=== PATIENT | male | born 1975 | race Caucasian/White ===

== ENCOUNTER 2020-03-27 10:44 | Emergency (ER) | payer OTHER, SELFPAY ==
--- NOTE | ~2020-03-27 | US_ITS ---
US scrotum doppler DATE: 03/27/2020 11:52 INDICATION: Scrotal swelling following mastectomy TECHNIQUE: Real-time and Color flow imaging and Doppler analysis of the scrotal contents COMPARISON: None FINDINGS: Right testicle measures 4.1 x 1.9 x 3.4 cm. Left testicle measures 5.3 x 2.2 x 3.4 cm. No testicular mass lesion or torsion is evident. There is homogeneous symmetric echotexture of the te sticles. There is a large smoothly marginated cyst in the right epididymal area measuring 4 x 2.4 x 1.8 cm dim ension. No evidence of varicoceles. IMPRESSION: 4 x 2.4 x 1.8 cm cyst in the right epididymal area No testicular mass lesion or torsion Reviewed, dictated and finalized at [facility] Reviewed, dictated and finalized at [facility]. [employer]
[2020-03-27 10:55] VITALS: BP 128/80; PULSE 101; RESP 20; TEMP 36.6; O2SAT 98
--- NOTE | 2020-03-27 11:30 | PC.NURSE ---
Lab orders placed by provider while patient in waiting room, patient was taken to ultrasound before this nurse could obtain labs or place IV.
--- NOTE | 2020-03-27 12:13 | PC.NURSE ---
Patient refused IV at this time
[2020-03-27 12:27] LABS: Basophils Percent Auto 0.4 % (0.2-1.2); Eosinophils Absolute Auto 0.1 K/mm3 (0-0.3); Eosinophils Percent Auto 1.7 % (0-4.4); Hematocrit 46.3 % (42.0-52.0); Hemoglobin 15.6 g/dL (14.0-18.0); Immature Granulocyte Absolute 0.04 K/mm3 (0.00-0.031); Immature Granulocyte Percent A 0.5 % (0-0.5); Lymphocytes Absolute Auto 1.92 K/mm3 (0.9-3.2); Lymphocytes Percent Auto 24.6 % (18.3-44.2); Mean Corpuscular HGB Conc 33.7 g/dl (32-36); Mean Corpuscular Hemoglobin 30.6 pg (26-34); Monocytes Percent Auto 12.7 % (2.6-8.5); Neutrophils Absolute Auto 4.7 K/mm3 (1.3-6.7); Neutrophils Percent Auto 60.1 % (45.5-73.1); Platelet Count Result 247 k/mm3 (150-375); Red Blood Count 5.09 M/mm3 (4.6-6.20); Red Cell Distribution Width 11.9 % (11.5-14.5); White Blood Count 7.8 K/mm3 (4.5-10.0)
[2020-03-27 12:34] LABS: Add Urine Microscopic? YES; Appearance Urine Clear (Clear); Bilirubin Urine Negative (Negative); Blood Urine Negative (Negative); Color Urine Yellow (Yellow); Glucose Urine UA Negative (Negative); Ketones Urine Negative (Negative); Leukocyte Esterase Ur Negative LEU/UL (Negative); Mucus Urine Rare /lpf; Nitrate Urine Negative (Negative); Protein Urine 1+ mg/dL (Negative); Urobilinogen Urine Negative mg/dL (<2.0); WBC Urine 0-3 /hpf
[2020-03-27 12:38] LABS: Potassium 4.4 mmol/L (3.4-5.0)
[2020-03-27 12:39] LABS: Lactic Acid Reflex 0.9 mmol/L (0.7-2.1)
[2020-03-27 12:40] LABS: Specific Grav Ur 1.033 (1.001-1.035)
[2020-03-27 12:42] LABS: Anion Gap 7 mmol/L (8-16); Blood Urea Nitrogen 21 mg/dL (9-20); Calcium 9.8 mg/dL (8.4-10.2); Carbon Dioxide 26 mmol/L (22-30); Chloride 105 mmol/L (98-107); Estimated CRCL calculation 105 ml/min; Estimated Glomerular Filt Rate > 60; Glucose 80 mg/dL (75-110); Sodium 138 mmol/L (137-145)
[2020-03-27] MEDS: SODIUM CHLORIDE 0.9% IV 1,000 ML 999 ML IV CONT (12:48)
--- NOTE | 2020-03-27 13:11 | ED.GENADULT ---
HPI - General Adult General Chief complaint: Urogenital-Male <Marcio Browne PA-C - Last Filed: 03/27/20 13:16> Stated complaint: testicular pain <Marcio Browne PA-C - Last Filed: 03/27/20 13:16> Time Seen by Provider: 03/27/20 10:57 <Marcio Browne PA-C - Last Filed: 03/27/20 13:16> Source: patient, family and old records reviewed <Marcio Browne PA-C - Last Filed: 03/27/20 13:16> Mode of arrival: ambulatory <Marcio Browne PA-C - Last Filed: 03/27/20 13:16> Limitations: no limitations <Marcio Browne PA-C - Last Filed: 03/27/20 13:16> History of Present Illness HPI narrative: Patient is a 44-year-old male who presents with scrotal swelling and pain patient had a vasectomy [address] Aguila was evaluated on Saturday in the urology office secondary to pain and swelling was placed on antibiotic and then again was evaluated on Saturday by Dr. Aguila placed on ciprofloxacin and then returns to emergency department today for evaluation for concern of discomfort and swelling but noting that the last 2 days have been his best days since the surgery patient denies vomiting diarrhea dysuria hematuria patient presents in no distress patient has been taking ibuprofen with relief <Marcio Browne PA-C - Last Filed: 03/27/20 13:16> Related Data Home medications: Home Medications Medication Instructions Recorded Confirmed ciprofloxacin HCl 500 mg PO BID 03/27/20 03/27/20 <Marcio Browne PA-C - Last Filed: 03/27/20 13:16> Allergies/adverse reactions: Allergies Allergy/AdvReac Type Severity Reaction Status Date / Time No Known Allergies Allergy Verified 03/27/20 10:59 <Marcio Browne PA-C - Last Filed: 03/27/20 13:16> Review of Systems Review of Systems: All systems reviewed & are unremarkable except as noted in HPI and below <Marcio Browne PA-C - Last Filed: 03/27/20 13:16> [facility] Surgical History Surgical History: Surgical History (Updated 03/27/20 @ 13:12 by Marcio Browne PA-C) H/O vasectomy <Marcio Browne PA-C - Last Filed: 03/27/20 13:16> Social History Social History: Social History (Updated 03/27/20 @ 13:12 by Marcio Browne PA-C) Smoking status: Never smoker Gender identity (if verbalized by the patient): Male <Marcio Browne PA-C - Last Filed: 03/27/20 13:16> Exam Narrative: Exam Narrative: GENERAL: Well-appearing, well-nourished, and in no acute distress. HEAD: Normocephalic, atraumatic. EYES: PERRLA and EOMI. ENT: Nares clear, no rhinorrhea or epistaxis. Mucous membranes moist. CHEST: Clear to auscultation. No respiratory distress. No wheezes rales or rhonchi HEART: Regular rate and rhythm. No murmur heard. Normal peripheral pulses. ABDOMEN: Soft, nontender, nondistended MALE GENITOURINARY: Patient with swollen scrotum bilaterally with majority of tenderness on the left side where the majority of the swelling is located there is bruising of the scrotum no erythema cellulitic changes or drainage remainder of genitalia unremarkable SKIN: Warm, dry, no rash. NEURO: No focal deficits. Alert and oriented x3. PSYCH: Normal mood and affect. <Marcio Browne PA-C - Last Filed: 03/27/20 13:16> Course Course Emergency Course: Patient evaluated in the emergency department will be discharged home patient was seen by urology plan is to continue at home given that he has had improvement over the last 2 days patient is afebrile nontoxic-appearing no distress. <Marcio Browne PA-C - Last Filed: 03/27/20 13:16> Consultations Consultation #1: natalie waller or neurology in the emergency department discussed case with him and will evaluate patient <Marcio Browne PA-C - Last Filed: 03/27/20 13:16> Date: 03/27/20 <Marcio Browne PA-C - Last Filed: 03/27/20 13:16> Time: 13:13 <Marcio Browne PA-C - Last Filed: 03/27/20 13:16> Vital Signs Vital signs:
[2020-03-27 13:23] VITALS: BP 127/62; PULSE 82; RESP 17; TEMP 36.9; O2SAT 97
--- NOTE | 2020-03-27 13:32 | WPDURCON ---
Assessment and Plan Assessment and plan (1) Postoperative hematoma involving genitourinary system following genitourinary procedure: Code(s): N99.840 - Postprocedural hematoma of a genitourinary system organ or structure following a genitourinary system procedure Status: Acute Assessment and Plan: Discussed options including scrotal washout or observation with supportive underwear. He's feeling better today actually. He'd like to avoid surgery. His testes appear normal via US. He may discharge with follow up this week in office to further evaluate. Urology Consult Note HPI Date Seen: 03/27/20 Primary Care Provider: Ga Shore, MD Consult Narrative Narrative: Randal Norris is a 44 year old male about one week out from a vasectomy. He was seen multiple times in the office this past week with concerns regarding swelling. The swelling increased significantly today and he came to the ED. His pain actually is the lowest level it's been since procedure. He was started on cipro by Dr Aguila this past Saturday. Scrotal US shows normal testicles and what is reported as a 4 cm epididymal cyst but is presumably either a hematoma or reactive hydrocele. No fevers, WBC normal. Review of Systems Review of Systems: All systems reviewed & are unremarkable except as noted in HPI and below PMFSH Surgical History Surgical History (Updated 03/27/20 @ 13:12 by Marcio Browne PA-C) H/O vasectomy Social History Social History (Updated 03/27/20 @ 13:12 by Marcio Browne PA-C) Smoking status: Never smoker Gender identity (if verbalized by the patient): Male Meds Home Medications and Allergies Home Medications Medication Instructions Recorded Confirmed Type ciprofloxacin HCl 500 mg PO BID 03/27/20 03/27/20 History Allergies Allergy/AdvReac Type Severity Reaction Status Date / Time No Known Allergies Allergy Verified 03/27/20 10:59 Vital Signs Vital Signs - 24 hr 03/27/20 10:55 03/27/20 13:23 Temperature 36.6 C 36.9 C Pulse Rate 101 H 82 Respiratory Rate 20 17 Blood Pressure 128/80 127/62 Pulse Oximetry 98 97 Exam Const: General: cooperative, healthy appearing and no acute distress HENMT: Head: normal to inspection and atraumatic Eyes: General: appearance normal, both eyes and all related structures Conjunctivae: conjunctivae normal Resp: Effort & Inspection: normal respiratory effort and no cough : Other: right testicle normal to palpation; left hemiscrotum about softball sized, some skin bruising, not overly tender, no signs of infection Results Labs CBC & Chem 7: 03/27/20 12:16 03/27/20 12:16 Labs: Short CBC 03/27/20 Range/Units 12:16 WBC 7.8 (4.5-10.0) K/mm3 Hgb 15.6 (14.0-18.0) g/dL Hct 46.3 (42.0-52.0) % Plt Count 247 (150-375) k/mm3 BMP 03/27/20 12:16 Sodium 138 Potassium 4.4 Chloride 105 Carbon Dioxide 26 BUN 21 H Creatinine 1.00 Glucose 80 Calcium 9.8 Urine 03/27/20 Range/Units 12:16 Urine Color Yellow (Yellow) Urine Appearance Clear (Clear) Urine pH 5.0 (5.0-9.0) Ur Specific [place] 1.033 (1.001-1.035) Urine Protein 1+ H (Negative) mg/dL Urine Glucose (UA) Negative (Negative) mg/dL
== END 2020-03-27 13:29 | disposition home or self-care (01) ==
PROVIDERS: Emergency Medicine Emergency Medical Services; Emergency Provider General Practice; PCP Family Medicine
DX: N99.840 Postprocedural hematoma of a genitourinary system organ or structure following a genitourinary system procedure (principal); Z98.52 Vasectomy status
CPT/HCPCS: 36415; 76870; 80048; 81001; 83605; 85025; 93976; 96365; 99284; J0131; J7030

== ENCOUNTER 2020-05-26 09:00 | Outpatient (CLI) | payer OTHER, SELFPAY | END 2020-05-26 09:01 | disposition home or self-care (01) | LOC: ANHCOVIDVC 09:00 | PROVIDERS: PCP Family Medicine | DX: Z23 Encounter for immunization (principal) | CPT/HCPCS: 0001A; 91300 ==

== ENCOUNTER 2020-06-16 09:03 | Outpatient (CLI) | payer OTHER, SELFPAY | END 2020-06-16 09:04 | disposition home or self-care (01) | LOC: ANHCOVIDVC 09:04 | PROVIDERS: PCP Family Medicine | DX: Z23 Encounter for immunization (principal) | CPT/HCPCS: 0002A; 91300 ==

== ENCOUNTER 2022-07-26 08:10 | Emergency (ER) | payer OTHER, SELFPAY ==
[2022-07-26 08:36] VITALS: BP 148/89; PULSE 79; RESP 18; TEMP 36.4; O2SAT 99
--- NOTE | 2022-07-26 08:51 | ED.EYEPROB ---
HPI - Eye Problem General Chief complaint: Eye Problems Stated complaint: rt eye irritation Source: patient and RN notes reviewed History of Present Illness HPI Narrative: 46-year-old male presents to urgent care with complaints of right eye irritation. Patient states he was mowing grass yesterday he something fly underneath his glasses and his right eye. Patient attempted to irrigate his right eye with water with no relief. Patient states he has been scratching his right all night and continues to feel a foreign body sensation. Denies any photosensitivity or visual disturbance. patient does not wear contacts. Some parts of this dictation were generated by voice recognition software and may contain typographical and/or grammatical inaccuracies. Related Data Allergies Allergy/AdvReac Type Severity Reaction Status Date / Time No Known Allergies Allergy Verified 07/26/22 08:58 Review of Systems Review of Systems: CONSTITUTIONAL: Denies fever, chills, or sweats. EYES: right eye irritation. Patient reports foreign body sensation. ENT: Denies otalgia and sore throat CARDIOVASCULAR: Denies chest pain, palpitations, or edema. RESPIRATORY: Denies cough or dyspnea. GASTROINTESTINAL: Denies abdominal pain, nausea, vomiting, or diarrhea. GENITOURINARY: Denies dysuria or hematuria. SKIN: Denies rash or itching. MUSCULOSKELETAL: Denies back pain, joint pain, or myalgia. NEUROLOGIC: Denies headache, numbness, or weakness. Pertinent positives per HPI. [facility] Surgical History Surgical History (Updated 03/27/20 @ 13:12 by Marcio Browne, GISEL) H/O vasectomy Social History Social History (Updated 03/27/20 @ 13:12 by Marcio Browne, GISEL) Smoking status: Never smoker Gender identity (if verbalized by the patient): Male Comments At the time of my signature, I reviewed and agree with the nursing past medical, surgical, social, and family history. There is no relevant family history pertinent to the patient complaint. Exam Narrative: GENERAL: This is a well-nourished, well-developed patient, in no apparent distress. HEAD: normocephalic, atraumatic. EYES: Sclera clear/white. Vision is grossly intact. Nguyen lamp exam was performed with no significant abrasion noted. 1 black speck FB was removed from under the right upper lid with a q-tip. EARS: External ears normal, auditory canals clear and without drainage. Hearing grossly intact. NOSE: External nose normal with no obvious nasal discharge, nares without redness, no rhinorrhea. THROAT: Mucous membranes moist, posterior pharynx clear. NECK: Neck supple, non-tender without lymphadenopathy, masses or thyromegaly. CARDIOVASCULAR: Regular rate RESPIRATORY: no respiratory distress SKIN: warm, intact with no suspicious lesions or rash, good texture and turgor. NEURO: awake, alert, and oriented to person, place and time. There were no obvious focal neurologic abnormalities. Course Course Level of Care: Express Care Visit Vital Signs Vital signs: Vital Signs Temperature 97.6 F 07/26/22 08:36 Pulse Rate 79 07/26/22 08:36 Respiratory Rate 18 07/26/22 08:36 Blood Pressure 148/89 H 07/26/22 08:36 Pulse Oximetry 99 07/26/22 08:36 Oxygen Delivery Room Air 07/26/22 08:36 Temperature 97.6 F 07/26/22 08:36 Pulse Rate 79 07/26/22 08:36 Respiratory Rate 18 07/26/22 08:36 Blood Pressure 148/89 H 07/26/22 08:36 Pulse Oximetry 99 07/26/22 08:36 Oxygen Delivery Room Air 07/26/22 08:36 Reviewed MDM - Eye Problem MDM Narrative Medical decision making narrative: May use the eyedrops if you begin to have eye pain again. Follow up with ophthalmology if you begin to have symptoms again. Differential Diagnosis Differential diagnosis: Likely corneal abrasion, corneal ulcer and other (eye fb) Critical Care Time Critical Care Time Critical Care Time: No Discharge Plan Discharge Clinical Impression: Eye forei
== END 2022-07-26 09:21 | disposition home or self-care (01) ==
PROVIDERS: Emergency Provider Nurse Practitioner Family; PCP Family Medicine
DX: T15.11XA Foreign body in conjunctival sac, right eye, initial encounter (principal); X58.XXXA Exposure to other specified factors, initial encounter; Z98.52 Vasectomy status
CPT/HCPCS: 65205; 99213; A9270; G0463

== ENCOUNTER 2024-07-29 08:12 | Emergency (ER) | payer OTHER, SELFPAY ==
--- NOTE | 2024-07-29 08:15 | ED.SKABFB ---
HPI - Skin/Abscess/Foreign Bdy General Chief complaint: Skin/Abscess/Foreign Body Stated complaint: Skin/Abscess/Foreign Body Time Seen by Provider: 07/29/24 08:15 Source: patient Mode of arrival: ambulatory Limitations: no limitations History of Present Illness HPI narrative: Randal is a 48-year-old male patient presenting to the clinic today with complaints of a red, mildly tender, mildly erythemic rash to the right chest wall. He reports symptoms started yesterday. Just got over hot tub folliculitis and was doing a topical clindamycin cream for that. His states the symptoms have resolved however yesterday he developed a mildly painful erythemic rash to the right breast. No drainage from his nipple. Denies any fevers, chills, body aches. Related Data Home Medications ?Medication ?Instructions ?Recorded ?Confirmed ?Last Taken ?Type azithromycin 250 mg tablet mg 07/29/24 Unknown History clindamycin phosphate 1 % topical topical 07/29/24 Unknown History gel Allergies Allergy/AdvReac Type Severity Reaction Status Date / Time No Known Allergies Allergy Verified 07/29/24 08:14 Review of Systems Review of Systems: Pertinent positives per HPI. Patient denies any fever, chills, headache, visual changes, dizziness, cough, runny nose, sore throat, shortness of breath, chest pain, palpitations, nausea, vomiting, diarrhea, constipation, abdominal pain, or any urinary issues. PMFSH Surgical History Surgical History H/O vasectomy Social History Social History Smoking status: Never smoker Gender identity (if verbalized by the patient): Male Comments At the time of my signature, I reviewed and agree with the nursing past medical, surgical, social, and family history. There is no relevant family history pertinent to the patient complaint. Exam Narrative: General: Well-developed, well nourished, in no apparent distress Head: Normocephalic, atraumatic. Cardio: Regular rate and rhythm, s1 and s2 normal, no murmur appreciated. Resp: Clear to auscultation bilaterally, no rhonchi, rales, wheezing or rubs. Integumentary: [place], warm, and dry, red, mildly tender to palpation, mildly erythemic, non fluctuant, non indurated, blanchable, rash just below the right nipple, no drainage from the nipple. Course Course Emergency Course: Portions of this record may have been created with voice recognition software. Level of Care: Express Care Visit Vital Signs Vital signs: Vital Signs Temperature 36.6 C 07/29/24 08:21 Pulse Rate 65 07/29/24 08:21 Respiratory Rate 14 07/29/24 08:21 Blood Pressure 150/82 H 07/29/24 08:21 Pulse Oximetry 100 07/29/24 08:21 Oxygen Delivery Room Air 07/29/24 08:21 Temperature 36.6 C 07/29/24 08:21 Pulse Rate 65 07/29/24 08:21 Respiratory Rate 14 07/29/24 08:21 Blood Pressure 150/82 H 07/29/24 08:21 Pulse Oximetry 100 07/29/24 08:21 Oxygen Delivery Room Air 07/29/24 08:21 Vital signs reviewed MDM - Skin/Abscess/Foreign Bdy MDM Narrative Medical decision making narrative: At the time of visit patient is resting comfortably on the exam table. Patient appears to be nontoxic. Plan: I suspect patient has a nonspecific rash. Rash is painful with palpation however is not painful when not being touch. Just recently got over folliculitis. Patient is concerned that there may be an internal skin infection that he may need oral antibiotics. He is leaving tomorrow to stay and [place] for 3 months. Area is tender to palpation and mild erythemic. Will cover with a 7 day course of clindamycin as well as a 7 day course of acyclovir. Will have him start the clindamycin and if symptoms are improving in the next few day/worsening or few developed blisters recommend starting the acyclovir as this may be the start of a shingles eruption. Supportive measures were discussed with the patient and they voiced understanding discharge instructions and agrees to treatment plan. Return precautions reviewed Differential Diagnosis Differential diagnosis: Likely abscess of skin or subcutaneous tissue, viral exanthem, dermatophytosis, urticaria, herpes zoster, allergic reaction to drug, cellulitis, insect bites, impetigo and contact dermatitis Discharge Plan Discharge Clinical Impression: Rash and nonspecific skin eruption Patient Disposition: Home Condition: Stable Instructions: Antibiotic Form, Shingles (ED), Cellulitis (ED) Additional Instructions: Keep area covered if develops blisters/draining Keep area clean and dry Start clindamycin as prescribed Take daily probiotic-may take this 2 hours before or 2 hours after taking 1 of the antibiotic doses May take Tylenol/Motrin as needed for pain May apply a lidocaine patch over the area to help alleviate pain If area develops blistering and antibiotics are not improving symptoms may start taking acyclovir as this may be the start of shingles. Follow-up with your primary care doctor or go to a local urgent care if symptoms persist in 3-5 days or sooner if symptoms worsen. Patient Language: Setswana Prescriptions: New clindamycin HCl [Cleocin HCl] 300 mg capsule 300 mg PO TID 7 Days Qty: 21 0RF acyclovir 800 mg tablet 800 mg PO Q4H 7 Days Qty: 42 0RF Rx Instructions: while awake; give 5 doses in 24 hours No Action azithromycin 250 mg tablet clindamycin phosphate 1 % gel TOPICAL Follow-up/Referrals: UNKNOWN,DOCTOR [Non-Staff] - Time of Disposition: 08:31 Quality NIHSS Nursing Documentation ED NIHSS nursing documentation: reviewed/agree
--- OUTSIDE RECORDS SUMMARY | 2024-07-29 08:18 | XMS_ITS | Clinical Summary ---
Author Organization [facility] Address [address] [place] [address] Care Team Providers Care Medical Billing Coordinator Name Role Phone Unavailable Primary Care Provider Unavailabl e Source Comments [facility],non-owned Affiliates and Associated Physician Practices is amultiple site organization consisting of ambulatory clinics and hospital sitesin [place], [place], [place] and [place]. This disclosure is being madepursuant to the Care Everywhere program and may not contain all information available regarding this patient. 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 Gender Identity Not on file Sexual Orientation Not on file Plan of Treatment Health Maintenance Due Date Last Done Comments COLOGUARD (AGES 45-75) - COL ON CA SCREENING 1974 COLON MONITORING 1974 COLONOSCOPY - COLON CA SCREENING 1974 CT COLONOGRAPHY - COLON CA SCREENING 1974 Colorectal Cancer Screening 1974 FIT - COLON CA SCREENING 1974 FLEX SIG - COLON CA SCREENING 1974 LIPID TESTING 1974 HIV SCREENING 1989 HEPATITIS C SCREENING 09/10/1992 DTAP/TDAP/TD VACCINES (1 - Tdap) 1993 HEPATITIS B VACCINE (1 of 3 - 19+ 3-dose series) 1993 COVID-19 VACCINE ( - 2023-2 5 season) 2023 DEPRESSION SCREENING 02/12/2024 ZOSTER VACCINE (1 of 2) 2024 INFLUENZA VACCINE (Season Ended) 2024 HIB VACCINE Aged Out No longer eligi ble based on patient's age to complete this topic HPV VACCINE Aged Out No longer eligi ble based on patient's age to complete this topic MENINGOCOCCAL (Group B) VACC INE SHARED DECISION-MAKING Aged Out No longer eligibl e based on patient's age to complete this topic MENINGOCOCCAL GROUPS A/C/Y/W VACCINE Aged Out No longer eligible b ased on patient's age to complete this topic
[2024-07-29 08:21] VITALS: BP 150/82; PULSE 65; RESP 14; TEMP 36.6; O2SAT 100
== END 2024-07-29 08:33 | disposition home or self-care (01) ==
PROVIDERS: Emergency Provider Nurse Practitioner Family
DX: R21 Rash and other nonspecific skin eruption (principal); Z98.52 Vasectomy status
CPT/HCPCS: 99213; G0463

== ENCOUNTER 2024-09-25 08:16 | Emergency (ER) | payer OTHER, SELFPAY ==
--- OUTSIDE RECORDS SUMMARY | 2024-09-25 08:21 | XMS_ITS | Clinical Summary ---
Author Organization [facility] Address [address] [place] [address] Care Team Providers Care Hand Bookbinder Name Role Phone Unavailable Primary Care Provider Unavailabl e Source Comments [facility],non-owned Affiliates and Associated Physician Practices is amultiple site organization consisting of ambulatory clinics and hospital sitesin [place], [place], [place] and [place]. This disclosure is being madepursuant to the Care Everywhere program and may not contain all information available regarding this patient. 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
[2024-09-25 08:25] VITALS: BP 129/93; PULSE 68; RESP 18; TEMP 36.2; O2SAT 98
--- NOTE | 2024-09-25 08:25 | ED.EAR ---
HPI - Ear Problem General Chief complaint: Ear Stated complaint: rt ear pain/infection Time Seen by Provider: 09/25/24 08:25 Source: patient Mode of arrival: ambulatory Limitations: no limitations History of Present Illness HPI Narrative: 49 y/o male presented for c/o right ear pain x2 weeks. Rates pain 1/10. Says pain started after swimming [place]. Denies ear drainage, tinnitus, dizziness, nasal congestion, n/v/d/f/c. No med or treatment prior to arrival. MD Complaint: ear pain Related Data Allergies Allergy/AdvReac Type Severity Reaction Status Date / Time No Known Allergies Allergy Verified 07/29/24 08:14 Review of Systems Review of Systems: CONSTITUTIONAL: Denies malaise, chills, or fever. EYES: Denies visual changes, redness, or discharge. ENT: Denies rhinorrhea, congestion, sinus pain, and sore throat. Reports ear pain CARDIOVASCULAR: Denies chest pain, palpitations, or edema. RESPIRATORY: Denies cough or dyspnea. GASTROINTESTINAL: Denies abdominal pain, nausea, vomiting, diarrhea SKIN: Denies rash or itching. MUSCULOSKELETAL: Denies myalgia. NEUROLOGIC: Denies headache. All systems reviewed & are unremarkable except as noted in HPI and below PMFSH Surgical History Surgical History H/O vasectomy Social History Social History Smoking status: Never smoker Gender identity (if verbalized by the patient): Male Comments At time of signature, agree with nursing past medical, surgical, social and family history. There is no relevant family history pertinent to the presenting complaint Exam Narrative: GENERAL: Well-appearing EYES: conjunctivae clear ENT: Nares clear. Mucous membranes moist. Right TM mildly erythematous and intact with purulent effusion; canal not erythematous, no drainage, no tragal tenderness. Oropharynx not erythematous without lesions. no drooling, no hoarseness, no trismus, uvula midline. NECK: Supple. No lymphadenopathy CHEST: Clear to auscultation, breath sounds equal. HEART: Regular rate and rhythm. SKIN: Warm, dry, no rash. NEURO: Alert and oriented x3. PSYCH: Normal mood and affect Course Course Emergency Course: Patient is aware of diagnosis, understands and agrees to treatment plan. Anticipatory guidance given. Patient agrees to follow-up as directed and is aware of reasons to seek care at the emergency department. Portions of this record may have been created with voice recognition software Level of Care: Express Care Visit Vital Signs Vital signs: Reviewed Medical Decision Making MDM Narrative Medical decision making narrative: Discussed physical exam findings consistent with right otitis media. Reviewed prescriptions, Advised supportive measures and signs/symptoms to go to the ER. Patient is appropriate for outpatient treatment and follow-up. Differential Diagnosis Differential Diagnosis: Coronavirus, strep pharyngitis, allergic rhinitis, upper respiratory tract infection, sinusitis, rhinosinusitis, nasopharyngitis, viral pharyngitis, otitis media, otitis externa, eustachian tube dysfunction, foreign body, cerumen impaction. Discharge Plan Discharge Clinical Impression: Otitis media Patient Disposition: Home Condition: Stable Instructions: Antibiotic Form, Ear Infection (ED) Additional Instructions: Take antibiotics as directed. Recommendations: antihistamine such as Benadryl, Zyrtec or Olivia Motrin or Tylenol as needed to reduce fever, pain Please schedule a follow-up visit with your personal physician If your symptoms persist, change or worsen significantly, go to the emergency department for further evaluation. Patient Language: Moroccan Prescriptions: New amoxicillin-pot clavulanate 875-125 mg tablet 1 tablet PO Q12H 7 Days Qty: 14 0RF Follow-up/Referrals: Cate,George [Other] Time of Disposition: 08:37
== END 2024-09-25 08:47 | disposition home or self-care (01) ==
PROVIDERS: Emergency Provider Nurse Practitioner Family
DX: H66.91 Otitis media, unspecified, right ear (principal); Z98.52 Vasectomy status
CPT/HCPCS: 99213; G0463